=== PATIENT | female | born 1945 | race African-American/Black ===

== ENCOUNTER 2016-05-06 22:06 | Emergency (ER) | payer MEDICARE ==
[2016-05-06] MEDS ORDERED: NORMAL SALINE 1000 ML 500 ML IV ONE (22:25)
[2016-05-06] MEDS ORDERED: ONDANSETRON HCL INJ/PF 4 MG/2 ML SDV IV ONE (22:25)
--- NOTE | 2016-05-06 22:52 | ER Document Report ---
ED General - General Stated Complaint: FEVER,VOMITING Notes: Patient is a 70-year-old female presents for complaint of nausea vomiting and fever. She's also had a lot of coughing. No diarrhea. No sick contacts. Symptoms started today. Fever was 100.61 the ambulance arrived. No chest pain. No abdominal pain. No blood in her emesis. No other complaints this time. TRAVEL OUTSIDE OF THE [place] IN LAST 30 DAYS: No - Related Data Allergies/Adverse Reactions: No Known Allergies Allergy (Verified 10/04/13 23:14) Past Medical History - Social History Smoking Status: Never Smoker Frequency of alcohol use: None Drug Abuse: None Family History: Reviewed & Not Pertinent - Past Medical History Cardiac Medical History: Reports: Hx Hypercholesterolemia, Hx Hypertension GI Medical History: Reports: Hx Gastroesophageal Reflux Disease Past Surgical History: Reports: Hx Cholecystectomy, Hx Hysterectomy - Immunizations Hx Diphtheria, Pertussis, Tetanus Vaccination: Yes Review of Systems - Review of Systems Notes: My Normal Review Basic REVIEW OF SYSTEMS: CONSTITUTIONAL : Fever EENT: Denies eye, ear, throat, or mouth pain or symptoms. Denies nasal or sinus congestion. CARDIOVASCULAR: Denies chest pain. RESPIRATORY: Recurrent cough GASTROINTESTINAL: Denies abdominal pain. Some vomiting. Denies constipation. Last BM: GENITOURINARY: Denies difficulty urinating, painful urination, burning, frequency, or blood in urine. MUSCULOSKELETAL: Denies neck or back pain or joint pain or swelling. SKIN: Denies rash or skin lesions. NEUROLOGICAL: Denies altered mental status or loss of consciousness. Denies headache. Denies weakness or paralysis or loss of use of either side. Denies problems with gait or speech. Denies sensory or motor loss. ALL OTHER SYSTEMS REVIEWED AND NEGATIVE. Physical Exam - Notes Notes: General Appearance: Well nourished, alert, cooperative, no acute distress, no obvious discomfort. Vitals: reviewed, See vital signs table. Head: no swelling or tenderness to the head Eyes: PERRL, EOMI, Conjuctiva clear Mouth: No decreasd moisture Throat: No tonsillar inflammation, No airway obstruction, No lymphadenopathy Ears: Normal appearing tympanic membranes bilaterally. Neck: Supple, no neck tenderness, No thyromegaly Lungs: Some coarse lung sounds in the left base. Remainder of lung rasheed are clear. Heart: Normal rate, Regular rythm, No murmur, no rub Abdomen: Normal BS, soft, No rigidity, No abdominal tenderness, No guarding, no rebound, no abdominal masses, no organomegaly Extremities: strength 5/5 in all extremities, good pulses in all extremities, no swelling or tenderness in the extremities, no edema. Skin: warm, dry, appropriate color, no rash Neuro: speech clear, oriented x 3, normal affect, responds appropriately to questions. Course - Laboratory Result Diagrams: 05/06/16 23:57 05/06/16 23:57 Laboratory results interpreted by me: 05/06/16 02 23:57 23:57 Hgb 11.4 L Hct 34.6 L RDW 14.5 H Sodium 136.5 L Creatinine 1.55 H Est GFR ( Amer) 40 L Est GFR (Non-Af Amer) 33 L Glucose 111 H - Transfer of Care Notes: 05/07/16 01:05 Patient continues looks very well and exam. She does have a dry cough during exam that was recurrent. The cough seems to have subsided she's looking much better. Her nausea is improved. She has no reproducible pain to palpation of her abdomen. Clinically she looks very well. Her laboratory evaluation is unremarkable. Chest x-ray does not currently show evidence pneumonia; however, she does have some diminishment no left lower lobe and she does have recurrent cough and low-grade fever. Being that she is 69 years of age with the pre- mentioned findings feel that it's appropriate to start her on antibiotic as she may be developing early pneumonia. Patient strongly encouraged return to ER immediately if she has any worsening of her symptoms or feels unwell. Patient agrees with plan will be discharged home. Dictation of this chart was performed using voice recognition software; therefore, there may be some unintended grammatical errors. Discharge - Discharge Clinical Impression: Acute bronchitis Qualifiers: Bronchitis organism: unspecified organism Qualified Code(s): J20.9 - Acute bronchitis, unspecified Fever Qualifiers: Fever type: unspecified Qualified Code(s): R50.9 - Fever, unspecified Vomiting Qualifiers: Vomiting type: unspecified Vomiting Intractability: non-intractable Nausea presence: with nausea Qualified Code(s): R11.2 - Nausea with vomiting, unspecified Condition: Good Disposition: HOME, SELF-CARE Additional Instructions: Please take the antibiotic as prescribed. We have given you a bottle of Zofran. This is a nausea medication. Please take it as 1 tablet by mouth every 4 hours as needed for nausea. The tablet will dissolve in her mouth. Please return to ER immediately if you have recurrent fevers, intractable vomiting, difficulty breathing, or feel that your worsening in any way. I suspect that you probably have a bronchitis based on the recurrent cough and low -grade fever. Even though you are well-appearing now, I still want to have a low threshold to return to ER if you are feeling that your worsening in anyway being that you are over 70 years of age. Prescriptions: Azithromycin 250 mg PO DAILY #4 tablet Referrals: JAMIA MERAZ MD [Primary Care Provider] - 05/09/16
[2016-05-07 00:18] LABS: ABSOLUTE MONOCYTES (AUTO) 0.9 10^3/uL (0.1-1.4); ABSOLUTE NEUT (AUTO) 5.1 10^3/uL (1.7-8.2); BASOPHILS % (AUTO) 0.3 % (0-2); EOSINOPHILS % (AUTO) 0.3 % (0-6); HEMATOCRIT 34.6 % (36.0-47.0); HEMOGLOBIN 11.4 g/dL (12.0-15.5); HGB HCT DIFFERENCE -0.4; MEAN CORPUSCULAR HEMOGLOBIN 27.8 pg (27.0-33.4); MEAN CORPUSCULAR HGB CONC 32.9 g/dL (32.0-36.0); MEAN CORPUSCULAR VOLUME 85 fl (80-97); MONOCYTES % (AUTO) 12.3 % (3-13); RED BLOOD COUNT 4.09 10^6/uL (3.72-5.28); RED CELL DISTRIBUTION WIDTH 14.5 % (11.5-14.0); SEGMENTED NEUTROPHILS % (AUTO) 73.1 % (42-78)
[2016-05-07 00:34] LABS: ANION GAP 12 (5-19); BLOOD UREA NITROGEN 20 mg/dL (7-20); CALCIUM 8.9 mg/dL (8.4-10.2); CARBON DIOXIDE 24 mmol/L (22-30); CHLORIDE 101 mmol/L (98-107); CREATININE RESULT 1.55 mg/dL (0.52-1.25); GLUCOSE 111 mg/dL (75-110); POTASSIUM 3.9 mmol/L (3.6-5.0); SODIUM 136.5 mmol/L (137-145)
[2016-05-07] MEDS ORDERED: AZITHROMYCIN 250 MG TABLET PO ONE (01:01)
[2016-05-07] MEDS ORDERED: ONDANSETRON ODT 4 MG TAB (6 TAB/DSPK) PO PRN (01:01)
[2016-05-07 09:00] VITALS: BP 112/49
== END 2016-05-07 02:57 | disposition home or self-care (01) ==
LOC: ER 22:06
DX: J20.9 Acute bronchitis, unspecified (principal); R11.2 Nausea with vomiting, unspecified; R50.9 Fever, unspecified; R05 Cough; I10 Essential (primary) hypertension; Z87.19 Personal history of other diseases of the digestive system; Z90.49 Acquired absence of other specified parts of digestive tract
CPT/HCPCS: 99284; 96374; 36415; 83735; 85025; 80048; 71020; A9270 ×2; J2405

== ENCOUNTER → 2016-07-13 | Outpatient (CLI) | payer MEDICARE | LOC: WI 08:41 | PROVIDERS: ATTEND Family Medicine | DX: Z12.31 Encounter for screening mammogram for malignant neoplasm of breast (principal) | CPT/HCPCS: 77067; G0202 ==

== ENCOUNTER → 2017-01-05 | Outpatient (CLI) | payer MEDICARE, MEDICAID ==
--- NOTE | 2017-01-05 10:15 | WOMENS IMAGING REPORT ---
EXAM DESCRIPTION: BONE DENSITY HIP/SPINE COMPLETED DATE/TIME: 01/05/2017 8:04 am REASON FOR STUDY: OSTEOPOROSIS M81.0 AGE-RELATED OSTEOPOROSIS W/O CURRENT PATHOLOGICAL FRAC COMPARISON: None. TECHNIQUE: Dual-Energy X-ray Absorptiometry (DEXA) of the AP Spine and Hip. LIMITATIONS: None. FINDINGS: LUMBAR SPINE: The bone mineral density (BMD) measured from L1-L4 in the AP projection correlates with a T-score of -4.9, which is osteoporotic as defined by the World Health Organization. HIP: The bone mineral density (BMD) measured in the left femoral neck at the hip correlates with a T-score of -1.6, which is osteopenic as defined by the World Health Organization. IMPRESSION: 1. LUMBAR SPINE: Osteoporotic 2. HIP: Osteopenic COMMENT: The World Health Organization defines low BMD as follows: T-score: Normal: Greater than -1.0 Osteopenia: Between -1.0 and -2.5 Osteoporosis: Less than -2.5 without fractures Established osteoporosis: Less than -2.5 with fractures In general, you may wish to consider: Diagnosis Treatment Follow-up DEXA Normal BMD Prevention 2-3 years Osteopenia Prevention/Therapy 1-2 years Osteoporosis Therapy Yearly TECHNICAL DOCUMENTATION: JOB ID: [id number]- All Rights Reserved
== END ==
LOC: WI 07:45
PROVIDERS: ATTEND Family Medicine
DX: M81.0 Age-related osteoporosis without current pathological fracture (principal)
CPT/HCPCS: 77080

== ENCOUNTER → 2017-07-17 | Outpatient (CLI) | payer MEDICARE, MEDICAID ==
--- NOTE | 2017-07-25 09:40 | WOMENS IMAGING REPORT ---
EXAM DESCRIPTION: 3D SCREENING MAMMO BILAT COMPLETED DATE/TIME: 07/17/2017 11:08 am REASON FOR STUDY: ROUTINE SCREENING;Z12.31 Z12.31 ENCNTR SCREEN MAMMOGRAM FOR MALIGNANT NEOPLASM OF KEY COMPARISON: [id number] TECHNIQUE: Standard craniocaudal and mediolateral oblique views of each breast recorded using digita l acquisition and breast tomosynthesis. LIMITATIONS: None. FINDINGS: No masses, calcifications or architectural distortion. No areas of suspicion. Read with the assistance of CAD. .[facility] - R2 Cenova Version 1.3 .[facility] - R2 Cenova Version 1.3 .[facility] - R2 Cenova Version 2.4 .[facility] [place] - R2 Cenova Version 2.4 .[facility] - R2 Social Worker Assistant Version 9.2 IMPRESSION: NORMAL MAMMOGRAM. BIRADS 1. BREAST DENSITY: b. There are scattered areas of fibroglandular density. BIRAD: 1 NEGATIVE RECOMMENDATION: ROUTINE SCREENING COMMENT: The patient has been notified of the results by letter per SA requirements. Additional no tification policies are in place for contacting patient with suspicious or incomplete findings. Quality ID #[id number]: The [employer] recommends an annual screening mammogram for women aged 40 years or over. This facility utilizes a reminder system to ensure that all patients receive reminder letters, and/or direct phone calls for appointments. This includes reminders for routine scr eening mammograms, diagnostic mammograms, or other Breast Imaging Interventions when appropriate. Th is patient will be placed in the appropriate reminder system. The [employer] (ACR) has developed recommendations for screening MRI of the breast s in certain patient populations, to be used in conjunction with mammography. Breast MRI surveillanc e may be appropriate for women with more than 20% lifetime risk of developing breast cancer as deter mined by genetic testing, significant family history of the disease, or history of mantle radiation f or Hodgkins Disease. ACR Practice Guidelines 2008. DBT Technology DBT is a type of tomographic mammography. With conventional mammography, overlapping breast tissue ma y make lesions difficult to detect, even with good compression. DBT uses an x-ray tube that rotates a round the breast, taking images at different angles. These images are then combined to create thin sl ices of the breast that the radiologist can view as a 3D reconstruction. The [employer] unit can perform full-field digital mammograms (2D imaging); or DBT (3D imaging); or both, in a combination mode that quickly performs both the mammogram and the tomosynthesis scan while the breast is still compressed. PQRS 6045F: Fluoroscopic imaging is not utilized for breast tomosynthesis. TECHNICAL DOCUMENTATION: FINDING NUMBER: (1) ASSESSMENT: (1) JOB ID: [id number] [employer]- All Rights Reserved Reading location - IP/workstation name: [email or web address]
== END ==
LOC: WI 08:59
PROVIDERS: ATTEND Family Medicine
DX: Z12.31 Encounter for screening mammogram for malignant neoplasm of breast (principal)
CPT/HCPCS: 77063; 77067

== ENCOUNTER 2017-08-04 18:24 | Emergency (ER) | payer MEDICARE, MEDICAID ==
--- NOTE | 2017-08-04 19:06 | ER Document Report ---
ED Medical Screen (RME) - General Chief Complaint: Chest Pain Stated Complaint: CHEST PAIN Time Seen by Provider: 08/04/17 19:02 Notes: RAPID MEDICAL EVALUATION DISCLOSURE I have seen this patient as part of a Rapid Medical Evaluation and, if applicable, placed any initially appropriate orders. The patient will be seen and fully evaluated, including a full history and physical exam, by a provider ( in Main ED or Fast Track) when a room becomes available. 71-year-old female here with complaints of left-sided chest pain nonradiating constant started earlier today. She does not have any shortness of breath nausea vomiting lightheadedness diaphoresis with the pain. Pain is worse with exertion. She feels it is better when she sits still and stops moving around. Has not taken anything for the pain. Has no prior history of heart disease. EXAM CTAB RRR TRAVEL OUTSIDE OF THE [place] IN LAST 30 DAYS: No - Related Data Allergies/Adverse Reactions: No Known Allergies Allergy (Verified 10/04/13 23:14) Past Medical History - Past Medical History Cardiac Medical History: Reports: Hx Hypercholesterolemia, Hx Hypertension GI Medical History: Reports: Hx Gastroesophageal Reflux Disease Past Surgical History: Reports: Hx Cholecystectomy, Hx Hysterectomy - Immunizations Hx Diphtheria, Pertussis, Tetanus Vaccination: Yes Physical Exam - Vital signs Vitals: Temp Pulse Resp BP Pulse Ox 98.9 F 75 16 132/69 H 97 08/04/17 18:38 08/04/17 18:38 08/04/17 18:38 08/04/17 18:38 08/04/17 18:38 Course - Vital Signs Vital signs: Temp Pulse Resp BP Pulse Ox 98.9 F 75 16 132/69 H 97 08/04/17 18:38 08/04/17 18:38 08/04/17 18:38 08/04/17 18:38 08/04/17 18:38
--- NOTE | 2017-08-04 19:39 | RADIOLOGY REPORT (SQ) ---
EXAM DESCRIPTION: CHEST 2 VIEWS COMPLETED DATE/TIME: 08/04/2017 7:29 pm REASON FOR STUDY: CP COMPARISON: 05/06/2016 EXAM PARAMETERS: NUMBER OF VIEWS: two views TECHNIQUE: Digital Frontal and Lateral radiographic views of the chest acquired. RADIATION DOSE: NA LIMITATIONS: none FINDINGS: LUNGS AND PLEURA: No opacities, masses or pneumothorax. No pleural effusion. MEDIASTINUM AND HILAR STRUCTURES: No masses or contour abnormalities. HEART AND VASCULAR STRUCTURES: Heart normal size. No evidence for failure. BONES: No acute findings. HARDWARE: None in the chest. OTHER: No other significant finding. IMPRESSION: NO ACUTE RADIOGRAPHIC FINDING IN THE CHEST. TECHNICAL DOCUMENTATION: JOB ID: [id number] [employer]- All Rights Reserved Reading location - IP/workstation name: [email or web address]
[2017-08-04 19:56] LABS: ABSOLUTE BASOPHILS # (AUTO) 0.1 10^3/uL (0.0-0.2); TOTAL CELLS COUNTED % (AUTO) 100 %; WHITE BLOOD COUNT 8.8 10^3/uL (4.0-10.5)
[2017-08-04 20:05] LABS: ABSOLUTE EOSINOPHILS # (AUTO) 0.3 10^3/uL (0.0-0.6); ABSOLUTE LYMPHOCYTES (AUTO) 4.7 10^3/uL (0.5-4.7); ABSOLUTE MONOCYTES (AUTO) 0.6 10^3/uL (0.1-1.4); ABSOLUTE NEUT (AUTO) 3.2 10^3/uL (1.7-8.2); BASOPHILS % (AUTO) 0.6 % (0-2); HEMATOCRIT 36.7 % (36.0-47.0); HEMOGLOBIN 12.6 g/dL (12.0-15.5); LYMPHOCYTES % (AUTO) 53.1 % (13-45); MEAN CORPUSCULAR HEMOGLOBIN 29.4 pg (27.0-33.4); MEAN CORPUSCULAR HGB CONC 34.3 g/dL (32.0-36.0); MEAN CORPUSCULAR VOLUME 86 fl (80-97); MONOCYTES % (AUTO) 7.3 % (3-13); PLATELET COUNT 278 10^3/uL (150-450); RED BLOOD COUNT 4.27 10^6/uL (3.72-5.28); RED CELL DISTRIBUTION WIDTH 13.6 % (11.5-14.0)
[2017-08-04 20:27] LABS: ANION GAP 15 (5-19); BLOOD UREA NITROGEN 16 mg/dL (7-20); CALCIUM 9.9 mg/dL (8.4-10.2); CARBON DIOXIDE 27 mmol/L (22-30); CHLORIDE 101 mmol/L (98-107); GLUCOSE 91 mg/dL (75-110); POTASSIUM 4.2 mmol/L (3.6-5.0); SODIUM 143.1 mmol/L (137-145)
--- NOTE | 2017-08-04 20:47 | ER Document Report ---
ED General - General Chief Complaint: Chest Pain Stated Complaint: CHEST PAIN Time Seen by Provider: 08/04/17 19:02 Mode of Arrival: Ambulatory Information source: Patient Notes: 71-year-old female history of hypertension hypercholesterolemia presents with complaints of chest wall pain. Patient notes his been constant pain for the past 2 days, she denies any trauma however notes when she moves around the pain worsens. She knows turning to her right mixed at heart return to the left does not. She denies any fevers or chills she denies any shortness of breath difficulty breathing TRAVEL OUTSIDE OF THE [place] IN LAST 30 DAYS: No - HPI Onset: Yesterday Onset/Duration: Persistent Quality of pain: Sharp Severity: Mild Pain Level: 1 Associated symptoms: Body/muscle aches, Chest pain Exacerbated by: Movement Relieved by: Remaining still Similar symptoms previously: No Recently seen / treated by doctor: No - Related Data Allergies/Adverse Reactions: No Known Allergies Allergy (Verified 10/04/13 23:14) Past Medical History - Social History Smoking Status: Never Smoker Cigarette use (# per day): No Chew tobacco use (# tins/day): No Smoking Education Provided: No Family History: Reviewed & Not Pertinent Patient has suicidal ideation: No Patient has homicidal ideation: No - Past Medical History Cardiac Medical History: Reports: Hx Hypercholesterolemia, Hx Hypertension Renal/ Medical History: Denies: Hx Peritoneal Dialysis GI Medical History: Reports: Hx Gastroesophageal Reflux Disease Past Surgical History: Reports: Hx Cholecystectomy, Hx Hysterectomy - Immunizations Hx Diphtheria, Pertussis, Tetanus Vaccination: Yes Review of Systems - Review of Systems Notes: REVIEW OF SYSTEMS: CONSTITUTIONAL : Denies fever, chills, or sweats. Denies recent illness. EENT: Denies eye, ear, throat, or mouth pain or symptoms. Denies nasal or sinus congestion or discharge. Denies throat, tongue, or mouth swelling or difficulty swallowing. CARDIOVASCULAR: Denies chest pain. Denies palpitations or racing or irregular heart beat. Denies ankle edema. RESPIRATORY: Denies cough, cold, or chest congestion. Denies shortness of breath, difficulty breathing, or wheezing. GASTROINTESTINAL: Denies abdominal pain or distention. Denies nausea, vomiting , or diarrhea. Denies blood in vomitus, stools, or per rectum. Denies black, tarry stools. Denies constipation. GENITOURINARY: Denies difficulty urinating, painful urination, burning, frequency, blood in urine, or discharge. FEMALE GENITOURINARY: Denies vaginal bleeding, heavy or abnormal periods, irregular periods. Denies vaginal discharge or odor. MUSCULOSKELETAL: Admits to chest wall pain SKIN: Denies rash, lesions or sores. HEMATOLOGIC : Denies easy bruising or bleeding. LYMPHATIC: Denies swollen, enlarged glands. NEUROLOGICAL: Denies confusion or altered mental status. Denies passing out or loss of consciousness. Denies dizziness or lightheadedness. Denies headache. Denies weakness or paralysis or loss of use of either side. Denies problems with gait or speech. Denies sensory loss, numbness, or tingling. Denies seizures. PSYCHIATRIC: Denies anxiety or stress. Denies depression, suicidal ideation, or homicidal ideation. ALL OTHER SYSTEMS REVIEWED AND NEGATIVE. PHYSICAL EXAMINATION: GENERAL: Well-appearing, well-nourished and in no acute distress. HEAD: Atraumatic, normocephalic. EYES: Pupils equal round and reactive to light, extraocular movements intact, conjunctiva are normal. ENT: Nares patent, oropharynx clear without exudates. Moist mucous membranes. NECK: Normal range of motion, supple without lymphadenopathy LUNGS: Breath sounds clear to auscultation bilaterally and equal. No wheezes rales or rhonchi. HEART: Regular rate and rhythm without murmurs completely reproducible chest wall tenderness upon palpation symptoms worsen with range of motion ABDOMEN: Soft, nontender, nondistended abdomen. No guarding, no rebound. No masses appreciated. Female : deferred Musculoskeletal: Normal range of motion, no pitting or edema. No cyanosis. NEUROLOGICAL: Cranial nerves grossly intact. Normal speech, normal gait. Normal sensory, motor exams PSYCH: Normal mood, normal affect. SKIN: Warm, Dry, normal turgor, no rashes or lesions noted. Dictation was performed using [employer] voice recognition software Physical Exam - Vital signs Vitals: Temp Pulse Resp BP Pulse Ox 98.9 F 75 16 132/69 H 97 08/04/17 18:38 08/04/17 18:38 08/04/17 18:38 08/04/17 18:38 08/04/17 18:38 Course - Re-evaluation Re-evalutation: 08/04/17 21:41 Patient's presentation is most consistent with costochondritis or irritation of her anterior chest wall, EKG noted no new changes she is a history of left bundle branch block she overall is well-appearing no distress resting comfortably cardiac enzyme was negative I do not believe the patient requires any further intervention as this is completely musculoskeletal and worsens with range of motion. Nonetheless I will have her follow-up with [facility] for further evaluation care and to take a baby aspirin daily until she is cleared by cardiology After performing a Medical Screening Examination, I estimate there is LOW risk for RUPTURED ESOPHAGUS, PNEUMOTHORAX, PULMONARY EMBOLISM, ACUTE CORONARY SYNDROME, OR THORACIC AORTIC DISSECTION, thus I consider the discharge disposition reasonable. I have reevaluated this patient multiple times and no significant life threatening changes are noted. The patient and I have discussed the diagnosis and risks, and we agree with discharging home with close follow-up. We also discussed returning to the Emergency Department immediately if new or worsening symptoms occur. We have discussed the symptoms which are most concerning (e.g., bloody sputum, worsening pain or shortness of breath) that necessitate immediate return. - Vital Signs Vital signs: Temp Pulse Resp BP Pulse Ox 98.9 F 75 20 153/83 H 100 08/04/17 18:38 08/04/17 18:38 08/04/17 20:01 08/04/17 20:01 08/04/17 20:01 - Laboratory Result Diagrams: 08/04/17 19:47 08/04/17 19:47 Laboratory results interpreted by me: 08/04/17 08/04/17 19:47 19:47 Seg Neutrophils % 36.0 L Lymphocytes % 53.1 H Est GFR (Non-Af Amer) 50 L - Diagnostic Test Radiology reviewed: Image reviewed - 2 view chest x-ray notes no acute abnormality, Reports reviewed - EKG Interpretation by Me EKG shows normal: Sinus rhythm, [place], Intervals [place]/QRS: LBBB When compared to previous EKG there are: No significant change Discharge - Discharge Clinical Impression: Chest wall tenderness Condition: Stable Disposition: HOME, SELF-CARE Instructions: Chest Pain of Unclear Cause ([facility]), Chest Wall Pain ([facility]) Referrals: JAMIA MERAZ MD [Primary Care Provider] - Follow up as needed GILL MARTINEZ MD [ACTIVE STAFF] - Follow up tomorrow
[2017-08-04] MEDS ORDERED: IBUPROFEN 800 MG TABLET PO ONE (21:43)
[2017-08-04 22:00] VITALS: BP 127/66
--- NOTE | 2017-08-04 22:39 | EKG REPORT ---
SEVERITY:- ABNORMAL ECG - SINUS RHYTHM LEFT BUNDLE BRANCH BLOCK : Confirmed by: Celso Hernandez 04-Aug-2017 19:37:54
== END 2017-08-04 22:00 | disposition home or self-care (01) ==
LOC: ER 18:24
DX: R07.89 Other chest pain (principal); M79.1 Myalgia; I10 Essential (primary) hypertension; E78.00 Pure hypercholesterolemia, unspecified; Z90.49 Acquired absence of other specified parts of digestive tract; Z90.710 Acquired absence of both cervix and uterus
CPT/HCPCS: 93005; 99285; 36415; 85025; 80048; 84484; 71046; 93010; A9270

== ENCOUNTER 2017-11-01 21:30 | Emergency (ER) | payer OTHER, MEDICARE, MEDICAID ==
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
[2017-11-02] MEDS ORDERED: KETOROLAC TROMETHAMINE 60 MG/2 ML SDV IM ONE (01:32)
[2017-11-02 02:05] VITALS: BP 162/75
== END 2017-11-02 02:14 | disposition home or self-care (01) ==
LOC: ER 21:30
DX: M25.561 Pain in right knee (principal); M54.2 Cervicalgia; R51 Headache; V89.2XXA Person injured in unspecified motor-vehicle accident, traffic, initial encounter; I10 Essential (primary) hypertension
CPT/HCPCS: 99284; 96372; 73564; 70450; 72125; L0120; J1885

== ENCOUNTER → 2018-07-18 | Outpatient (CLI) | payer MEDICAID, MEDICARE ==
--- NOTE | 2018-07-18 14:23 | WOMENS IMAGING REPORT ---
EXAM DESCRIPTION: 3D SCREENING MAMMO BILAT COMPLETED DATE/TIME: 07/18/2018 8:58 am REASON FOR STUDY: Z12.31 ENCOUNTER FOR SCREENING MAMMOGRAM FOR MALIGNANT NEOPLASM OF BREAST Z12.31 ENCNTR SCREEN MAMMOGRAM FOR MALIGNANT NEOPLASM OF KEY COMPARISON: Multiple since 2010 TECHNIQUE: Standard craniocaudal and mediolateral oblique views of each breast recorded using digita l acquisition and breast tomosynthesis. LIMITATIONS: None. FINDINGS: No masses, calcifications or architectural distortion. No areas of suspicion. Read with the assistance of CAD. .[facility] - R2 [employer] Terminology Version 9.2 IMPRESSION: NORMAL MAMMOGRAM. BIRADS 1. BREAST DENSITY: b. There are scattered areas of fibroglandular density. BIRAD: 1 NEGATIVE RECOMMENDATION: ROUTINE SCREENING COMMENT: The patient has been notified of the results by letter per MQSA requirements. Additional no tification policies are in place for contacting patient with suspicious or incomplete findings. Quality ID #225: The [employer] recommends an annual screening mammogram for women aged 40 years or over. This facility utilizes a reminder system to ensure that all patients receive reminder letters, and/or direct phone calls for appointments. This includes reminders for routine scr eening mammograms, diagnostic mammograms, or other Breast Imaging Interventions when appropriate. Th is patient will be placed in the appropriate reminder system. TECHNICAL DOCUMENTATION: FINDING NUMBER: (1) ASSESSMENT: (1) JOB ID: [id number] [employer]- All Rights Reserved Reading location - IP/workstation name: [email or web address]
== END ==
LOC: WI 08:26
PROVIDERS: ATTEND Family Medicine
DX: Z12.31 Encounter for screening mammogram for malignant neoplasm of breast (principal)
CPT/HCPCS: 77063; 77067

== ENCOUNTER 2019-01-15 20:59 | Observation (INO) | payer MEDICARE ==
[2019-01-15] MEDS ORDERED: ASPIRIN 81 MG TABLET, CHEWABLE PO ONE (21:03)
--- NOTE | 2019-01-15 21:15 | ER Document Report ---
ED Medical Screen (RME) - General Chief Complaint: Chest Pain Stated Complaint: CHEST PAIN Time Seen by Provider: 01/15/19 21:11 Primary Care Provider: JAMIA MERAZ MD [Primary Care Provider] - Follow up as needed Mode of Arrival: Medic Information source: Patient Notes: 73-year-old female with history of high blood pressure presents to the emergency department with complaints of left-sided chest pain that started around 8 PM tonight. Reports she placed ice pack on the area and felt better. Denies other symptoms such as fever nausea vomiting sweating diarrhea. Patient is alert and oriented calm. She denies history of cardiac disease. I have greeted and performed a rapid initial assessment of this patient. A comprehensive ED assessment and evaluation of the patient, analysis of test results and completion of the medical decision making process will be conducted by additional ED providers. Dictation of this chart was performed using voice recognition software; therefore, there may be some unintended grammatical errors. TRAVEL OUTSIDE OF THE [place] IN LAST 30 DAYS: No - Related Data Allergies/Adverse Reactions: No Known Allergies Allergy (Verified 10/04/13 23:14) Past Medical History - Past Medical History Cardiac Medical History: Reports: Hx Hypercholesterolemia, Hx Hypertension Renal/ Medical History: Denies: Hx Peritoneal Dialysis GI Medical History: Reports: Hx Gastroesophageal Reflux Disease Past Surgical History: Reports: Hx Cholecystectomy, Hx Hysterectomy - Immunizations Hx Diphtheria, Pertussis, Tetanus Vaccination: Yes Doctor's Discharge - Discharge Referrals: JAMIA MERAZ MD [Primary Care Provider] - Follow up as needed
[2019-01-15 21:19] LABS: ABSOLUTE EOSINOPHILS # (AUTO) 0.2 10^3/uL (0.0-0.6); ABSOLUTE LYMPHOCYTES (AUTO) 4.3 10^3/uL (0.5-4.7); ABSOLUTE MONOCYTES (AUTO) 0.7 10^3/uL (0.1-1.4); ABSOLUTE NEUT (AUTO) 2.7 10^3/uL (1.7-8.2); BASOPHILS % (AUTO) 0.3 % (0-2); EOSINOPHILS % (AUTO) 2.2 % (0-6); HEMATOCRIT 34.7 % (36.0-47.0); HEMOGLOBIN 11.3 g/dL (12.0-15.5); LYMPHOCYTES % (AUTO) 54.2 % (13-45); MEAN CORPUSCULAR HEMOGLOBIN 27.6 pg (27.0-33.4); MEAN CORPUSCULAR HGB CONC 32.6 g/dL (32.0-36.0); MEAN CORPUSCULAR VOLUME 85 fl (80-97); PLATELET COUNT 232 10^3/uL (150-450); RED CELL DISTRIBUTION WIDTH 13.6 % (11.5-14.0); SEGMENTED NEUTROPHILS % (AUTO) 34.3 % (42-78); TOTAL CELLS COUNTED % (AUTO) 100 %; WHITE BLOOD COUNT 7.9 10^3/uL (4.0-10.5)
--- NOTE | 2019-01-15 21:22 | ER Document Report ---
ED General - General Chief Complaint: Chest Pain Stated Complaint: CHEST PAIN Time Seen by Provider: 01/15/19 21:11 Mode of Arrival: Medic Notes: Patient is a 73-year-old female with hypertension and hyperlipidemia that presents to the emergency department for chief complaint of nausea, vomiting and chest pain. Patient states that she was sitting watching TV when she all of a sudden felt nausea, and chest tightness just under her left breast. She then vomited shortly after. She is feeling better now, no chest pain is resolving. She was given 4 aspirin. Denies prior history of coronary disease. But admits to hypertension hyperlipidemia she states she is had a stress test in the past, and believes that it was negative but she does not recall exactly when it was. She denied having the pain any worse with exertion or better with rest. Denies any associated diaphoresis. No recent cough, prolonged travel, leg swelling or shortness of breath. Past Medical History: Hypertension, hyperlipidemia Past Surgical History: Denies any recent or pertinent surgical history Social History: Denies tobacco, alcohol or drug use, lives at home with family Family History: Reviewed and noncontributory for presenting illness Allergies: Reviewed, see documented allergy list. REVIEW OF SYSTEMS: Other than noted above, the 12 point review of systems was reviewed with the patient and were negative, all pertinent findings are included in the HPI. PHYSICAL EXAMINATION: Vital signs reviewed, nursing noted reviewed. GENERAL: Well-appearing, well-nourished and in no acute distress. HEAD: Atraumatic, normocephalic. EYES: Eyes appear normal, extraocular movements intact, sclera anicteric, conjunctiva are normal. ENT: nares patent, oropharynx clear without exudates. Moist mucous membranes. NECK: Normal range of motion, supple without lymphadenopathy LUNGS: Breath sounds clear to auscultation bilaterally and equal. No wheezes rales or rhonchi. HEART: Regular rate and rhythm without murmurs ABDOMEN: Soft, nontender, normoactive bowel sounds. No rebound, guarding, or rigidity. No masses appreciated. EXTREMITIES: Nontender, good range of motion, no pitting or edema. NEUROLOGICAL: No focal neurological deficits. Moves all extremities spontaneously Motor and sensory grossly intact on exam. PSYCH: Normal mood, normal affect. SKIN: Warm, Dry, normal turgor, no rashes or lesions noted on exposed skin TRAVEL OUTSIDE OF THE [place] IN LAST 30 DAYS: No - Related Data Allergies/Adverse Reactions: No Known Allergies Allergy (Verified 10/04/13 23:14) Past Medical History - General Information source: Patient - Social History Smoking Status: Never Smoker Family History: Reviewed & Not Pertinent - Past Medical History Cardiac Medical History: Reports: Hx Hypercholesterolemia, Hx Hypertension Renal/ Medical History: Denies: Hx Peritoneal Dialysis GI Medical History: Reports: Hx Gastroesophageal Reflux Disease Past Surgical History: Reports: Hx Cholecystectomy, Hx Hysterectomy - Immunizations Hx Diphtheria, Pertussis, Tetanus Vaccination: Yes Physical Exam - Vital signs Vitals: Temp Resp BP Pulse Ox 98.3 F 21 H 141/93 H 100 01/15/19 21:15 01/15/19 21:15 01/15/19 21:15 01/15/19 21:15 Course - Re-evaluation Re-evalutation: Patient seen and examined vital signs reviewed. Laboratory data and imaging were ordered as appropriate for the patient's presenting symptoms and complaint, with consideration of any critical or life threatening conditions that may be associated with their obtained history and exam as noted above. Patient was treated with aspirin Results were reviewed when available and demonstrated negative troponin, and chest x-ray blood work was otherwise unremarkable The patient was re-evaluated and was stable, chest pain was resolved Evaluation was most consistent with chest pain, nonspecific, patient has a heart score of 5 based on history, age and risk factors, and believe she needs serial troponin testing for rule out. Results were discussed with the patient at this point after careful consideration I feel that that patient should be admitted to the hospital. This was discussed with the patient that it is in the best interest for their care to be admitted for further evaluation and management. Patient agreed with this plan of care. A call was placed to the admitting physician, Dr. Quijano who graciously accepted the patient onto their service. *Note is created using voice recognition software and may contain spelling, syntax or grammatical errors. Laboratory 01/15/19 01/15/19 01/15/19 21:06 21:06 21:06 WBC 7.9 RBC 4.10 Hgb 11.3 L Hct 34.7 L MCV 85 MCH 27.6 MCHC 32.6 RDW 13.6 Plt Count 232 Lymph % (Auto) 54.2 H [place] % (Auto) 9.0 Eos % (Auto) 2.2 Baso % (Auto) 0.3 Absolute Neuts (auto) 2.7 Absolute Lymphs (auto) 4.3 Absolute Monos (auto) 0.7 Absolute Eos (auto) 0.2 Absolute Basos (auto) 0.0 Seg Neutrophils % 34.3 L Sodium 143.1 Potassium 3.8 Chloride 105 Carbon Dioxide 26 Anion Gap 12 BUN 12 Creatinine 1.01 Est GFR ( Amer) > 60 Est GFR (MDRD) Non-Af 54 L Glucose 91 Calcium 9.0 Total Bilirubin 0.4 Direct Bilirubin 0.2 Neonat Total Bilirubin Not Reportable Neonat Direct Bilirubin Not Reportable Neonat Indirect Bili Not Reportable AST 23 ALT 17 Alkaline Phosphatase 111 Creatine Kinase 146 H CK-MB (CK-2) 0.50 Troponin I < 0.012 Total Protein 7.6 Albumin 4.3 Lipase 01/15/19 21:06 WBC RBC Hgb Hct MCV MCH MCHC RDW Plt Count Lymph % (Auto) [place] % (Auto) Eos % (Auto) Baso % (Auto) Absolute Neuts (auto) Absolute Lymphs (auto) Absolute Monos (auto) Absolute Eos (auto) Absolute Basos (auto) Seg Neutrophils % Sodium Potassium Chloride Carbon Dioxide Anion Gap BUN Creatinine Est GFR ( Amer) Est GFR (MDRD) Non-Af Glucose Calcium Total Bilirubin Direct Bilirubin Neonat Total Bilirubin Neonat Direct Bilirubin Neonat Indirect Bili AST ALT Alkaline Phosphatase Creatine Kinase CK-MB (CK-2) Troponin I Total Protein Albumin Lipase 161.0 Chest X-Ray 01/15/19 21:11 IMPRESSION: No acute cardiopulmonary disease. - Vital Signs Vital signs: Temp Pulse Resp BP Pulse Ox 98.3 F 21 H 141/93 H 100 01/15/19 21:15 01/15/19 21:15 01/15/19 21:15 01/15/19 21:15 - Laboratory Result Diagrams: 01/15/19 21:06 01/15/19 21:06 Laboratory results interpreted by me: 01/15/19 01/15/19 21:06 21:06 Hgb 11.3 L Hct 34.7 L Lymph % (Auto) 54.2 H Seg Neutrophils % 34.3 L Est GFR (MDRD) Non-Af 54 L Creatine Kinase 146 H - EKG Interpretation by Me Additional EKG results interpreted by me: EKG demonstrates sinus rhythm with a ventricular rate of 73 bpm, normal axis, QTC prolonged at 425 ms, presence of left bundle branch block, which was seen on patient's prior EKG, without acute change. Discharge - Discharge Clinical Impression: Chest pain Qualifiers: Chest pain type: unspecified Qualified Code(s): R07.9 - Chest pain, unspecified Condition: Stable Disposition: ADMITTED OBSERVATION Admitting Provider: Quijano Unit Admitted: Telemetry
[2019-01-15 21:39] LABS: ALBUMIN 4.3 g/dL (3.5-5.0); ALKALINE PHOSPHATASE 111 U/L (38-126); ANION GAP 12 (5-19); ASPARTATE AMINO TRANSFERASE 23 U/L (14-36); BILIRUBIN,DIRECT 0.2 mg/dL (0.0-0.4); BILIRUBIN,TOTAL 0.4 mg/dL (0.2-1.3); BLOOD UREA NITROGEN 12 mg/dL (7-20); CARBON DIOXIDE 26 mmol/L (22-30); CHLORIDE 105 mmol/L (98-107); CREATINE KINASE 146 U/L (30-135); GLUCOSE 91 mg/dL (75-110); POTASSIUM 3.8 mmol/L (3.6-5.0); TOTAL PROTEIN 7.6 g/dL (6.3-8.2)
[2019-01-15 21:52] LABS: TROPONIN I < 0.012 ng/mL
--- NOTE | 2019-01-15 21:58 | RADIOLOGY REPORT (SQ) ---
XR CHEST 1 VIEW EXAM DATE: 01/15/2019 9:11 PM CDT HISTORY: CP. COMPARISON: 08/04/2017 FINDINGS: The heart size is within normal limits. No consolidation, pleural effusion, or pneumothorax is seen. No acute bony findings. IMPRESSION: No acute cardiopulmonary disease.
[2019-01-15] MEDS ORDERED: ACETAMINOPHEN 325 MG TABLET PO PRN (22:44)
[2019-01-15] MEDS ORDERED: MAG HYDROX/AL HYDROX/SIMETH SUSP 30 ML UDCUP PO PRN (22:44)
[2019-01-15] MEDS ORDERED: ONDANSETRON HCL INJ/PF 4 MG/2 ML SDV IV PRN (22:44)
[2019-01-15] MEDS ORDERED: NORMAL SALINE 1000 ML 1,000 ML IV PRN (22:56)
[2019-01-16 03:43] LABS: ALKALINE PHOSPHATASE 102 U/L (38-126); ANION GAP 9 (5-19); ASPARTATE AMINO TRANSFERASE 23 U/L (14-36); BILIRUBIN,DIRECT 0.1 mg/dL (0.0-0.4); BILIRUBIN,TOTAL 0.6 mg/dL (0.2-1.3); BLOOD UREA NITROGEN 12 mg/dL (7-20); CALCIUM 9.1 mg/dL (8.4-10.2); CARBON DIOXIDE 27 mmol/L (22-30); CHLORIDE 106 mmol/L (98-107); CREATINE KINASE 130 U/L (30-135); GLUCOSE 92 mg/dL (75-110); POTASSIUM 4.5 mmol/L (3.6-5.0); TOTAL PROTEIN 7.1 g/dL (6.3-8.2)
[2019-01-16 03:51] LABS: CREATINE KINASE MB 0.28 ng/mL (<4.55)
[2019-01-16 03:56] LABS: TROPONIN I < 0.012 ng/mL
[2019-01-16] MEDS: PANTOPRAZOLE SODIUM 40 MG TABLET.DR PO SCH ×2 (06:40→17:49)
--- NOTE | 2019-01-16 07:30 | EKG REPORT ---
SEVERITY:- ABNORMAL ECG - SINUS RHYTHM ATRIAL PREMATURE COMPLEX LEFT BUNDLE BRANCH BLOCK : Confirmed by: Canelo Bishop MD 16-Jan-2019 07:29:30
--- NOTE | 2019-01-16 07:30 | EKG REPORT ---
SEVERITY:- ABNORMAL ECG - SINUS RHYTHM LEFT BUNDLE BRANCH BLOCK : Confirmed by: Canelo Bishop MD 16-Jan-2019 07:29:20
--- NOTE | 2019-01-16 10:08 | PDOC H&P ---
History of Present Illness Admission Date/PCP: 01/15/19 22:52 JAMIA MERAZ MD Patient complains of: Chest pain History of Present Illness: CHEY DESAI is a 73 year old female This is a 73-year-old female with a history of the hypertension's hyperlipidemia and history of the left bundle branch block currently see Dr. PETERSON as outpatient with the history of the Peptic ulcer disease and questionable Madelyn Celsa tearAnd a Dr. Oliver need the endoscopy couple of years back and put on a PPI Patients came to the emergency department with a complaint of a left-sided pain started 8:00 last night and feel nausea vomiting that cut up her symptoms and in the emergency department patient's received the Zofran and aspirin and then after the patient's symptoms pretty much resolved Patient's recent LDL is 138 other blood work is all stable Patient's LFT and lipase is all normal and EKG and cardiac enzyme is all normal Patient's denied any chest pain now denied any short of breath Seen by the cardiology Dr. PETERSON at this year and according to the patient have a stress test and echo done not sure Past Medical History Cardiac Medical History: Reports: Hyperlipidema, Hypertension GI Medical History: Reports: Gastroesophageal Reflux Disease, Peptic Ulcer Disease Psychiatric Medical History: Denies: Depression Past Surgical History Past Surgical History: Reports: Cholecystectomy, Hysterectomy Social History Information Source: Patient Smoking Status: Never Smoker Electronic Cigarette use?: No Frequency of Alcohol Use: None Hx Recreational Drug Use: No Drugs: None Hx Prescription Drug Abuse: No Family History Family History: Reviewed & Not Pertinent Parental Family History Reviewed: Yes Children Family History Reviewed: Yes Sibling(s) Family History Reviewed.: Yes Medication/Allergy Home Medications: Ezetimibe 10 mg PO DAILY 01/16/19 Hydrochlorothiazide [Hydrodiuril 25 mg Tablet] 25 mg PO DAILY 01/16/19 Metoprolol Succinate [Toprol Xl 25 mg Tab.sr] 12.5 mg PO DAILY 01/16/19 Omeprazole 20 mg PO DAILY 01/16/19 Spironolactone [Aldactone 25 mg Tablet] 25 mg PO DAILY 01/16/19 Allergies/Adverse Reactions: No Known Allergies Allergy (Verified 10/04/13 23:14) Review of Systems Constitutional: ABSENT: chills, fever(s), headache(s), weight gain, weight loss Eyes: ABSENT: visual disturbances Ears: ABSENT: hearing changes Cardiovascular: ABSENT: chest pain, dyspnea on exertion, edema, orthropnea, palpitations Respiratory: ABSENT: cough, hemoptysis Gastrointestinal: ABSENT: abdominal pain, constipation, diarrhea, hematemesis, hematochezia, nausea, vomiting Genitourinary: ABSENT: dysuria, hematuria Musculoskeletal: ABSENT: joint swelling Integumentary: ABSENT: rash, wounds Neurological: ABSENT: abnormal gait, abnormal speech, confusion, dizziness, focal weakness, syncope Psychiatric: ABSENT: anxiety, depression, homidical ideation, suicidal ideation Endocrine: ABSENT: cold intolerance, heat intolerance, menstrual abnormalities, polydipsia, polyuria Hematologic/Lymphatic: ABSENT: easy bleeding, easy bruising, lymphadenopathy Physical Exam Vital Signs: Temp Pulse Resp BP Pulse Ox 98.4 F 62 16 149/75 H 100 01/16/19 08:19 01/16/19 08:19 01/16/19 08:19 01/16/19 08:19 01/16/19 08:19 Intake & Output 01/15/19 01/16/19 01/17/19 06:59 06:59 06:59 Output Total 0 Balance 0 Weight 80.9 kg General appearance: PRESENT: no acute distress, well-developed, well-nourished Head exam: PRESENT: atraumatic, normocephalic Eye exam: PRESENT: conjunctiva pink, EOMI, PERRLA. ABSENT: scleral icterus Ear exam: PRESENT: normal external ear exam Mouth exam: PRESENT: moist, tongue midline Neck exam: PRESENT: full ROM. ABSENT: carotid bruit, JVD, lymphadenopathy, thyromegaly Respiratory exam: PRESENT: clear to auscultation wenceslao Cardiovascular exam: PRESENT: RRR. ABSENT: diastolic murmur, rubs, systolic murmur Pulses: PRESENT: normal dorsalis pedis pul, +2 pedal pulses bilateral Vascular exam: PRESENT: normal capillary refill GI/Abdominal exam: PRESENT: normal bowel sounds, soft. ABSENT: distended, guarding, mass, organolmegaly, rebound, tenderness Rectal exam: PRESENT: deferred Musculoskeletal exam: PRESENT: ambulatory Neurological exam: PRESENT: alert, awake, oriented to person, oriented to place, oriented to time, oriented to situation, CN II-XII grossly intact. ABSENT: motor sensory deficit Psychiatric exam: PRESENT: appropriate affect, normal mood. ABSENT: homicidal ideation, suicidal ideation Skin exam: PRESENT: dry, intact, warm. ABSENT: cyanosis, rash Results Laboratory Results: 01/15/19 21:06 01/16/19 02:49 01/15/19 01/15/19 01/15/19 21:06 21:06 21:06 WBC 7.9 RBC 4.10 Hgb 11.3 L Hct 34.7 L MCV 85 MCH 27.6 MCHC 32.6 RDW 13.6 Plt Count 232 Seg Neutrophils % 34.3 L Sodium 143.1 Potassium 3.8 Chloride 105 Carbon Dioxide 26 Anion Gap 12 BUN 12 Creatinine 1.01 Est GFR ( Amer) > 60 Glucose 91 Calcium 9.0 Total Bilirubin 0.4 AST 23 Alkaline Phosphatase 111 Total Protein 7.6 Albumin 4.3 Lipase 161.0 01/16/19 02:49 WBC RBC Hgb Hct MCV MCH MCHC RDW Plt Count Seg Neutrophils % Sodium 141.7 Potassium 4.5 Chloride 106 Carbon Dioxide 27 Anion Gap 9 BUN 12 Creatinine 0.97 Est GFR ( Amer) > 60 Glucose 92 Calcium 9.1 Total Bilirubin 0.6 AST 23 Alkaline Phosphatase 102 Total Protein 7.1 Albumin 4.0 Lipase 01/15/19 01/15/19 01/16/19 21:06 21:06 02:49 Creatine Kinase 146 H CK-MB (CK-2) 0.50 0.28 Troponin I < 0.012 < 0.012 01/16/19 02:49 Creatine Kinase 130 CK-MB (CK-2) Troponin I Impressions: Chest X-Ray 01/15/19 21:11 IMPRESSION: No acute cardiopulmonary disease. Assessment & Plan - Diagnosis (1) Chest pain Qualifiers: Chest pain type: unspecified Qualified Code(s): R07.9 - Chest pain, unspecified Is this a current diagnosis for this admission?: Yes Plan: Patient initial EKG and a cardiac enzyme is all stable with the history of the left bundle branch is chronic we will consult the cardiology for further e valuations (2) Peptic ulcer disease Is this a current diagnosis for this admission?: Yes Plan: History of the ulcers the past week continues to Protonix 40 mg twice a day get the barium swallow and patients probably need a endoscopy as an outpatient we will discuss with Dr. Oliver (3) Hypertension Qualifiers: Hypertension type: essential hypertension Qualified Code(s): I10 - Essential (primary) hypertension Is this a current diagnosis for this admission?: Yes Plan: Continues to current medications (4) Hiatal hernia Is this a current diagnosis for this admission?: Yes Plan: Continues to PPI (5) Hyperlipidemia Qualifiers: Hyperlipidemia type: unspecified Qualified Code(s): E78.5 - Hyperlipidemia, unspecified Is this a current diagnosis for this admission?: Yes Plan: Continues to statin (6) Left bundle branch block Is this a current diagnosis for this admission?: Yes Plan: Patient has a known left bundle branch block evaluated in the past by Dr. PETERSON we will consult Dr. PETERSON for continuous further evaluations - Time Time Spent: 50 to 70 Minutes Medications reviewed and adjusted accordingly: Yes Anticipated discharge: Home Within: within 24 hours - Inpatient Certification Based on my medical assessment, after consideration of the patient's comorbidities, presenting symptoms, or acuity I expect that the services needed warrant INPATIENT care.: Yes I certify that my determination is in accordance with my understanding of Medicare's requirements for reasonable and necessary INPATIENT services [42 CFR 412.3e].: Yes Medical Necessity: Significant Comorbidiites Make Outpatient Treatment Too Risky, Need For Continuous Telemetry Monitoring Post Hospital Care: D/C Technical Administrative Assistant Documentation - Plan Summary Plan Summary: Admit the patient in the IMCU see orders
[2019-01-16 11:16] LABS: CREATINE KINASE MB 0.33 ng/mL (<4.55)
[2019-01-16 11:20] LABS: TROPONIN I < 0.012 ng/mL
[2019-01-16] MEDS: EZETIMIBE 10 MG TABLET PO SCH (11:21)
[2019-01-16] MEDS: ENOXAPARIN SODIUM INJ 40 MG/0.4 ML DISP.SYRIN SUBCUT SCH (11:21)
--- NOTE | 2019-01-16 11:37 | PDOC CONSULTATION ---
Consultation-Blank Consultation: CARDIOLOGY CONSULTATION by Dr. Breanne Wilson on 01/16/2019. Patient seen at 8:30 AM on 01/16/2019. 60 minutes spent on this patient more than 50% of time spent in direct patient care. REASON FOR CONSULTATION: Chest pain. CONSULT REQUESTING PHYSICIAN: Dr. Sandy Quijano. HISTORY OF PRESENT ILLNESS: Patient is a 73-year-old Afro-[place] female with known history of hypertension and hyperlipidemia and chronic left bundle branch block pattern states that while sitting down she had sudden onset of tightness in the chest followed by nausea and vomiting several times. There is chest pain/tightness lasted for about 5 minutes. There was no palpitations. There is no diaphoresis. There is no shortness of breath or any other associated symptoms. The patient has no prior history of [place], and in 2014 had a negative stress test for ischemia or [place] with nuclear imaging. She has no history of congestive heart failure. She has a history of peptic ulcer disease and history of Madelyn-Rogers tear in the past. She does have occasional difficulty swallowing. She has had cholecystectomy. There is no palpitations or PND orthopnea or near syncope or syncope. Past Medical History Cardiac Medical History: Reports: Hyperlipidema, Hypertension. She has a history of chronic left bundle branch block pattern. There is no history of congestive heart failure. GI Medical History: Reports: Gastroesophageal Reflux Disease, Peptic Ulcer Disease. History of intermittent dysphagia. History of Madelyn-Rogers tear. Psychiatric Medical History: Denies: Depression ECHOCARDIOGRAPHY TECHNOLOGIST: There is no history of TIA CVA. No history of headaches migraines or seizures. PULMONARY: No history of asthma or COPD. She is a non-smoker. There is no history of sleep apnea. There is no history of pulmonary embolism. GENITOURINARY: The patient denies any history of chronic kidney disease. No history of recurrent UTIs. ENDOCRINE: There is no history of diabetes mellitus or thyroid disease. Past Surgical History Past Surgical History: Reports: Cholecystectomy, Hysterectomy Social History Information Source: Patient Smoking Status: Never Smoker Electronic Cigarette use?: No Frequency of Alcohol Use: None Hx Recreational Drug Use: No Drugs: None Hx Prescription Drug Abuse: No Family History Family History: Positive for myocardial infarction/coronary artery disease in his sister. RESUSCITATION STATUS: The patient is a full code. Her sister is her surrogate healthcare decision maker. Medication/Allergy Home Medications: Ezetimibe 10 mg PO DAILY 01/16/19 Hydrochlorothiazide [Hydrodiuril 25 mg Tablet] 25 mg PO DAILY 01/16/19 Metoprolol Succinate [Toprol Xl 25 mg Tab.sr] 12.5 mg PO DAILY 01/16/19 Omeprazole 20 mg PO DAILY 01/16/19 Spironolactone [Aldactone 25 mg Tablet] 25 mg PO DAILY 01/16/19 Allergies/Adverse Reactions: No Known Allergies Allergy (Verified 10/04/13 23:14) Review of Systems Constitutional: ABSENT: chills, fever(s), headache(s), weight gain, weight loss Eyes: ABSENT: visual disturbances Ears: ABSENT: hearing changes Cardiovascular: ABSENT: chest pain, dyspnea on exertion, edema, orthropnea, palpitations Respiratory: ABSENT: cough, hemoptysis Gastrointestinal: ABSENT: abdominal pain, constipation, diarrhea, hematemesis, hematochezia, nausea, vomiting Genitourinary: ABSENT: dysuria, hematuria Musculoskeletal: ABSENT: joint swelling Integumentary: ABSENT: rash, wounds Neurological: ABSENT: abnormal gait, abnormal speech, confusion, dizziness, focal weakness, syncope Psychiatric: ABSENT: anxiety, depression, homidical ideation, suicidal ideation Endocrine: ABSENT: cold intolerance, heat intolerance, menstrual abnormalities, polydipsia, polyuria Hematologic/Lymphatic: ABSENT: easy bleeding, easy bruising, lymphadenopathy Current Medications Acetaminophen (Tylenol 325 Mg Tablet) 650 mg PO Q4HP PRN PRN Reason: FOR PAIN OR TEMP Stop: 02/14/19 22:43 Al Hydrox/Mg Hydrox/Simethicone (Maalox Plus Susp 30 Udcup) 15 ml PO Q6HP PRN PRN Reason: HEARTBURN Stop: 02/14/19 22:43 Ezetimibe (Zetia 10 Mg Tablet) 10 mg PO DAILY [facility] Stop: 02/15/19 10:59 Last Admin: 01/16/19 11:21 Dose: 10 mg Documented by: Enoxaparin Sodium (Lovenox Inj 40 Mg/0.4 Ml Disp.Syrin) 40 mg SUBCUT DAILY [facility] Stop: 02/15/19 09:59 Last Admin: 01/16/19 11:21 Dose: 40 mg Documented by: Hydrochlorothiazide (Hydrodiuril 25 Mg Tablet) 25 mg PO DAILY [facility] Stop: 02/16/19 09:59 Metoprolol Succinate (Toprol Xl 25 Mg Tab.Sr) 25 mg PO DAILY [facility] Stop: 02/16/19 09:59 Ondansetron HCl (Zofran Inj/Pf 4 Mg/2 Ml Sdv) 4 mg IV Q4HP PRN PRN Reason: FOR NAUSEA/VOMITING Stop: 02/14/19 22:43 Pantoprazole Sodium (Protonix [address] Tablet) 40 mg PO BID@0600,1700 [facility] Stop: 02/15/19 05:59 Last Admin: 01/16/19 06:40 Dose: 40 mg Documented by: Discontinued Medications Aspirin (Aspirin 81 Mg Chewable Tablet) 324 mg PO NOW ONE Stop: 01/15/19 21:04 Last Admin: 01/15/19 21:55 Dose: Not Given Documented by: Sodium Chloride (Nacl 0.9% 1000 Ml Iv Soln) 1,000 mls @ 60 mls/hr IV CONTINUOUS PRN PRN Reason: THIS MED IS NOT "PRN" Stop: 02/14/19 22:55 Last Admin: 01/16/19 02:42 Dose: 60 mls/hr Documented by: Metoprolol Succinate (Toprol Xl 25 Mg Tab.Sr) 12.5 mg PO DAILY [facility] Stop: 02/16/19 09:59 Spironolactone (Aldactone 25 Mg Tablet) 25 mg PO DAILY [facility] Stop: 02/16/19 09:59 PHYSICAL EXAMINATION: The patient is mildly obese. In no acute distress. She is well-groomed. Selected Entries 01/16/19 08:19 Temperature 98.4 F Temperature Oral Source Pulse Rate 62 Respiratory 16 Rate Blood Pressure 99 Mean BP Location Right Arm O2 Sat by Pulse 100 Oximetry Oxygen Delivery Room Air Method HEAD: Atraumatic, normocephalic. EYES: Pupils equal round and reactive to light, extraocular movements intact, sclera anicteric, conjunctiva are normal. ENT: TMs normal, nares patent, oropharynx clear without exudates. Moist mucous membranes. NECK: Normal range of motion, supple without lymphadenopathy or JVD. LUNGS: Breath sounds clear to auscultation bilaterally and equal. No wheezes rales or rhonchi. There is no chest wall tenderness HEART: S1-S2 is heard. S1 is of normal intensity. There is no S3 gallop. There is no S4 gallop. There is systolic murmur left sternal border and the apex, there is no rub ABDOMEN: Soft, nontender, normoactive bowel sounds. No guarding, no rebound. No masses appreciated. EXTREMITIES: Normal range of motion, no pitting or edema. No clubbing or cyanosis. NEUROLOGICAL: Cranial nerves II through XII grossly intact. Normal speech, normal gait. 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 Sensations are normal bilaterally. PSYCH: Normal mood, normal affect. His judgment and insight are intact SKIN: Warm, Dry, normal turgor, no rashes or lesions noted. EKG: Shows sinus rhythm with left bundle branch block pattern. Labs- Entire Visit 01/15/19 01/15/19 01/15/19 21:06 21:06 21:06 WBC 7.9 RBC 4.10 Hgb 11.3 L Hct 34.7 L MCV 85 MCH 27.6 MCHC 32.6 RDW 13.6 Plt Count 232 Lymph % (Auto) 54.2 H [place] % (Auto) 9.0 Eos % (Auto) 2.2 Baso % (Auto) 0.3 Absolute Neuts (auto) 2.7 Absolute Lymphs (auto) 4.3 Absolute Monos (auto) 0.7 Absolute Eos (auto) 0.2 Absolute Basos (auto) 0.0 Seg Neutrophils % 34.3 L Sodium 143.1 Potassium 3.8 Chloride 105 Carbon Dioxide 26 Anion Gap 12 BUN 12 Creatinine 1.01 Est GFR ( Amer) > 60 Est GFR (MDRD) Non-Af 54 L Glucose 91 Calcium 9.0 Total Bilirubin 0.4 Direct Bilirubin 0.2 Neonat Total Bilirubin Not Reportable Neonat Direct Bilirubin Not Reportable Neonat Indirect Bili Not Reportable AST 23 ALT 17 Alkaline Phosphatase 111 Creatine Kinase 146 H CK-MB (CK-2) 0.50 Troponin I < 0.012 Total Protein 7.6 Albumin 4.3 Lipase 01/15/19 01/16/19 01/16/19 21:06 02:49 02:49 WBC RBC Hgb Hct MCV MCH MCHC RDW Plt Count Lymph % (Auto) [place] % (Auto) Eos % (Auto) Baso % (Auto) Absolute Neuts (auto) Absolute Lymphs (auto) Absolute Monos (auto) Absolute Eos (auto) Absolute Basos (auto) Seg Neutrophils % Sodium 141.7 Potassium 4.5 Chloride 106 Carbon Dioxide 27 Anion Gap 9 BUN 12 Creatinine 0.97 Est GFR ( Amer) > 60 Est GFR (MDRD) Non-Af 56 L Glucose 92 Calcium 9.1 Total Bilirubin 0.6 Direct Bilirubin 0.1 Neonat Total Bilirubin Not Reportable Neonat Direct Bilirubin Not Reportable Neonat Indirect Bili Not Reportable AST 23 ALT 15 Alkaline Phosphatase 102 Creatine Kinase 130 CK-MB (CK-2) 0.28 Troponin I < 0.012 Total Protein 7.1 Albumin 4.0 Lipase 161.0 01/16/19 01/16/19 10:05 10:05 WBC RBC Hgb Hct MCV MCH MCHC RDW Plt Count Lymph % (Auto) [place] % (Auto) Eos % (Auto) Baso % (Auto) Absolute Neuts (auto) Absolute Lymphs (auto) Absolute Monos (auto) Absolute Eos (auto) Absolute Basos (auto) Seg Neutrophils % Sodium Potassium Chloride Carbon Dioxide Anion Gap BUN Creatinine Est GFR ( Amer) Est GFR (MDRD) Non-Af Glucose Calcium Total Bilirubin Direct Bilirubin Neonat Total Bilirubin Neonat Direct Bilirubin Neonat Indirect Bili AST ALT Alkaline Phosphatase Creatine Kinase 124 CK-MB (CK-2) 0.33 Troponin I < 0.012 Total Protein Albumin Lipase Chest X-Ray 01/15/19 21:11 IMPRESSION: No acute cardiopulmonary disease. IMPRESSION/RECOMMENDATION: 1. Chest pain: Appears to be noncardiac. The patient's EKG shows chronic left bundle branch block pattern, but the serial cardiac biomarkers are negative. 2. History of GERD/peptic ulcer disease and history of Madelyn-Rogers tear. Agree with getting the patient to have a barium swallow and his visual x-ray. 3. Hypertension: Not very well controlled would recommend adding increasing the patient's Lopressor to 25 mg p.o. daily in the form of Toprol-XL 25 p.o. daily. 4. Hyperlipidemia 5. CHRONIC left bundle branch block pattern. 6. History of GERD and peptic ulcer disease: Continue proton pump inhibitors. 7. Coronary artery disease risk factors are patient's age, hypertension, hyperlipidemia, and family history of coronary artery disease. Would recommend that the patient have an outpatient IV Lexiscan Cardiolite stress test and a echocardiogram. Medications reviewed. Medications adjusted. Management plan discussed with a ttending physician Dr. Quijano. Medical decision making is of moderate to high complexity. 60 minutes spent on this patient with more than 50% of time spent direct patient care. We will have the patient follow-up with me in the office. Will sign off once the results of the barium x-rays are available.
--- NOTE | 2019-01-16 12:38 | RADIOLOGY REPORT (SQ) ---
EXAM DESCRIPTION: BARIUM SWALLOW ESOPHAGUS COMPLETED DATE/TIME: 01/16/2019 11:51 am REASON FOR STUDY: History of the Madelyn-Rogers tear CHEST PAIN DYSPHAGIA COMPARISON: Upper GI 08/03/2015. TECHNIQUE: Under fluoroscopic guidance, patient ingested effervescent granules followed by thick and thin barium. Fluoroscopic spot images and routine radiographic images acquired and stored on PACS. 12 MM BARIUM TABLET GIVEN: Yes. No significant delay in passage. LIMITATIONS: None. FLUOROSCOPY TIME: FLUORO TIME: 2.2 minutes of fluoroscopy was used. 14 images saved to PACS. FINDINGS: NEUROMUSCULAR COORDINATION OF SWALLOW: Patient was given Omnipaque 300 to swallow which sh owed no evidence of esophageal perforation or leak. Neuromuscular coordination of swallow was normal . No aspiration. ESOPHAGEAL MOTILITY: Tertiary contractions in the distal half esophagus. ESOPHAGEAL MUCOSA: Normal mucosa without masses or ulceration. GASTRO-ESOPHAGEAL JUNCTION: Large sliding hiatal hernia with moderate free-flowing gastroesophageal r eflux noted. Hiatal hernia appears slightly more pronounced than on previous study. 12 mm barium ta blet passed through the GE junction without delay. No evidence of Madelyn-Rogers tear. NON-GI TRACT STRUCTURES: No significant finding. OTHER: No other significant finding. IMPRESSION: ESOPHAGEAL DYSMOTILITY WITH TERTIARY CONTRACTIONS SEEN. MODERATE SLIDING HIATAL HERNIA WITH GASTROESOPHAGEAL REFLUX NOTED ABOVE. COMMENT: Quality ID 145: Final reports for procedures using fluoroscopy that document radiation exp osure indices, or exposure time and number of fluorographic images (if radiation exposure indices are not available) TECHNICAL DOCUMENTATION: JOB ID: [id number] [employer]- All Rights Reserved Reading location - IP/workstation name: [email or web address] [id number]
[2019-01-16 16:12] LABS: CREATINE KINASE MB 0.32 ng/mL (<4.55)
[2019-01-16 16:14] LABS: TROPONIN I < 0.012 ng/mL
[2019-01-17] MEDS: PANTOPRAZOLE SODIUM 40 MG TABLET.DR PO SCH (06:15)
[2019-01-17 08:41] VITALS: BP 148/65
--- NOTE | 2019-01-17 08:59 | PDOC DISCHARGE SUMMARY ---
Impression - Admit/DC Date/PCP Admission Date/Primary Care Provider: 01/15/19 22:52 JAMIA MERAZ MD Discharge Date: 01/17/19 - Discharge Diagnosis (1) Chest pain Is this a current diagnosis for this admission?: Yes (2) Peptic ulcer disease Is this a current diagnosis for this admission?: Yes (3) Hypertension Is this a current diagnosis for this admission?: Yes (4) Hiatal hernia Is this a current diagnosis for this admission?: Yes (5) Hyperlipidemia Is this a current diagnosis for this admission?: Yes (6) Left bundle branch block Is this a current diagnosis for this admission?: Yes - Additional Information Discharge Diet: Cardiac Discharge Activity: Activity As Tolerated Referrals: ROSANNE BEAN MD [ACTIVE STAFF] - 02/26/19 2:15 pm (Dr. Bean's office will call if an earlier appointment becomes available.) JAMIA MERAZ MD [Primary Care Provider] - Follow up as needed (f/u with dr aguilar f/u with dr camilo make appt ) Prescriptions: Omeprazole 40 mg PO DAILY #30 capsule. Metoprolol Succinate [Toprol Xl 25 mg Tab.sr] 25 mg PO DAILY #30 tab.sr.24h Home Medications: Ezetimibe 10 mg PO DAILY 01/16/19 Hydrochlorothiazide [Hydrodiuril 25 mg Tablet] 25 mg PO DAILY 01/16/19 Metoprolol Succinate [Toprol Xl 25 mg Tab.sr] 25 mg PO DAILY #30 tab.sr.24h 01/17/19 Omeprazole 40 mg PO DAILY #30 capsule. 01/17/19 History of Present Illiness History of Present Illness: CHEY DESAI is a 73 year old female This is a 73-year-old female with a history of the hypertension's hyperlipidemia and history of the left bundle branch block currently see Dr. AGUILAR as outpatient with the history of the Peptic ulcer disease and questionable Madelyn Celsase toroAnd a Dr. Bean need the endoscopy couple of years back and put on a PPI Patients came to the emergency department with a complaint of a left-sided pain started 8:00 last night and feel nausea vomiting that cut up her symptoms and in the emergency department patient's received the Zofran and aspirin and then after the patient's symptoms pretty much resolved Patient's recent LDL is 138 other blood work is all stable Patient's LFT and lipase is all normal and EKG and cardiac enzyme is all normal Patient's denied any chest pain now denied any short of breath Seen by the cardiology Dr. AGUILAR at this year and according to the patient have a stress test and echo done not sure Hospital Course Hospital Course: This is a 73-year-old female presented emergency department with some nausea left-sided chest pain known history of the left bundle branch block with a history of the peptic ulcer disease Patient initial cardiac enzymes EKG all stable patient's admitting in the hospital for further evaluation and cardiology consult was placed Patient seen by Dr. AGUILAR suggest noncardiac chest pain follow outpatient as per discussed with the Dr. Wilson Patients underwent for the a cervical x-ray did not show any significant abnormality except is going hiatal hernia Patient's only present was increased to 40 mg patient's otherwise denied any symptoms patient is walking the hallway i Think patient's symptoms are related to the GI discussed with the patient avoid the spicy food patients follow outpatients Dr. Bean for further evaluations and Dr. AGUILAR I will follow the patient Physical Exam Vital Signs: Temp Pulse Resp BP Pulse Ox 98.6 F 75 16 148/65 H 97 01/17/19 08:39 01/17/19 08:39 01/17/19 08:39 01/17/19 08:39 01/17/19 08:39 Intake & Output 01/16/19 01/17/19 01/18/19 06:59 06:59 06:59 Intake Total 1190 Output Total 0 Balance 0 1190 Weight 80.9 kg 80.9 kg General appearance: PRESENT: no acute distress, well-developed, well-nourished Head exam: PRESENT: atraumatic, normocephalic Eye exam: PRESENT: conjunctiva pink, EOMI, PERRLA. ABSENT: scleral icterus Ear exam: PRESENT: normal external ear exam Mouth exam: PRESENT: moist, tongue midline Neck exam: ABSENT: carotid bruit, JVD, lymphadenopathy, thyromegaly Respiratory exam: PRESENT: clear to auscultation wenceslao. ABSENT: rales, rhonchi, wheezes Cardiovascular exam: PRESENT: RRR. ABSENT: diastolic murmur, rubs, systolic murmur Pulses: PRESENT: normal dorsalis pedis pul Vascular exam: PRESENT: normal capillary refill GI/Abdominal exam: PRESENT: normal bowel sounds, soft. ABSENT: distended, guarding, mass, organolmegaly, rebound, tenderness Rectal exam: PRESENT: deferred Extremities exam: PRESENT: full ROM. ABSENT: calf tenderness, clubbing, pedal edema Neurological exam: PRESENT: alert, awake, oriented to person, oriented to place, oriented to time, oriented to situation, CN II-XII grossly intact. ABSENT: motor sensory deficit Psychiatric exam: PRESENT: appropriate affect, normal mood. ABSENT: homicidal ideation, suicidal ideation Skin exam: PRESENT: dry, intact, warm. ABSENT: cyanosis, rash Results Laboratory Results: WBC 7.9 10^3/uL (4.0-10.5) 01/15/19 21:06 RBC 4.10 10^6/uL (3.72-5.28) 01/15/19 21:06 Hgb 11.3 g/dL (12.0-15.5) L 01/15/19 21:06 Hct 34.7 % (36.0-47.0) L 01/15/19 21:06 MCV 85 fl (80-97) 01/15/19 21:06 MCH 27.6 pg (27.0-33.4) 01/15/19 21:06 MCHC 32.6 g/dL (32.0-36.0) 01/15/19 21:06 RDW 13.6 % (11.5-14.0) 01/15/19 21:06 Plt Count 232 10^3/uL (150-450) 01/15/19 21:06 Lymph % (Auto) 54.2 % (13-45) H 01/15/19 21:06 [place] % (Auto) 9.0 % (3-13) 01/15/19 21:06 Eos % (Auto) 2.2 % (0-6) 01/15/19 21:06 Baso % (Auto) 0.3 % (0-2) 01/15/19 21:06 Absolute Neuts (auto) 2.7 10^3/uL (1.7-8.2) 01/15/19 21:06 Absolute Lymphs (auto) 4.3 10^3/uL (0.5-4.7) 01/15/19 21:06 Absolute Monos (auto) 0.7 10^3/uL (0.1-1.4) 01/15/19 21:06 Absolute Eos (auto) 0.2 10^3/uL (0.0-0.6) 01/15/19 21:06 Absolute Basos (auto) 0.0 10^3/uL (0.0-0.2) 01/15/19 21:06 Seg Neutrophils % 34.3 % (42-78) L 01/15/19 21:06 Sodium 141.7 mmol/L (137-145) 01/16/19 02:49 Potassium 4.5 mmol/L (3.6-5.0) 01/16/19 02:49 Chloride 106 mmol/L (98-107) 01/16/19 02:49 Carbon Dioxide 27 mmol/L (22-30) 01/16/19 02:49 Anion Gap 9 (5-19) 01/16/19 02:49 BUN 12 mg/dL (7-20) 01/16/19 02:49 Creatinine 0.97 mg/dL (0.52-1.25) 01/16/19 02:49 Est GFR ( Amer) > 60 (>60) 01/16/19 02:49 Est GFR (MDRD) Non-Af 56 (>60) L 01/16/19 02:49 Glucose 92 mg/dL (75-110) 01/16/19 02:49 Calcium 9.1 mg/dL (8.4-10.2) 01/16/19 02:49 Total Bilirubin 0.6 mg/dL (0.2-1.3) 01/16/19 02:49 Direct Bilirubin 0.1 mg/dL (0.0-0.4) 01/16/19 02:49 Neonat Total Bilirubin Not Reportable 01/16/19 02:49 Neonat Direct Bilirubin Not Reportable 01/16/19 02:49 Neonat Indirect Bili Not Reportable 01/16/19 02:49 AST 23 U/L (14-36) 01/16/19 02:49 ALT 15 U/L (<35) 01/16/19 02:49 Alkaline Phosphatase 102 U/L (38-126) 01/16/19 02:49 Creatine Kinase 119 U/L (30-135) 01/16/19 15:02 CK-MB (CK-2) 0.32 ng/mL (<4.55) 01/16/19 15:02 Troponin I < 0.012 ng/mL 01/16/19 15:02 Total Protein 7.1 g/dL (6.3-8.2) 01/16/19 02:49 Albumin 4.0 g/dL (3.5-5.0) 01/16/19 02:49 Lipase 161.0 U/L (23-300) 01/15/19 21:06 01/15/19 01/16/19 01/16/19 21:06 02:49 10:05 CK-MB (CK-2) 0.50 0.28 0.33 Troponin I < 0.012 < 0.012 < 0.012 01/16/19 15:02 CK-MB (CK-2) 0.32 Troponin I < 0.012 Impressions: Chest X-Ray 01/15/19 21:11 IMPRESSION: No acute cardiopulmonary disease. Esophagus X-Ray 01/16/19 00:00 IMPRESSION: ESOPHAGEAL DYSMOTILITY WITH TERTIARY CONTRACTIONS SEEN. MODERATE SLIDING HIATAL HERNIA WITH GASTROESOPHAGEAL REFLUX NOTED ABOVE. Plan Plan of Treatment: Follow outpatients Dr. Bean and Dr. AGUILAR Increase to omeprazole 40 mg p.o. daily Stroke Is this a Stroke Patient?: No Acute Heart Failure - Is this a Heart Failure Patient?: No
[2019-01-17] MEDS: EZETIMIBE 10 MG TABLET PO SCH (09:17)
[2019-01-17] MEDS: ENOXAPARIN SODIUM INJ 40 MG/0.4 ML DISP.SYRIN SUBCUT SCH (09:20)
[2019-01-17] MEDS ORDERED: SPIRONOLACTONE 25 MG TABLET PO SCH (10:00)
[2019-01-17] MEDS ORDERED: HYDROCHLOROTHIAZIDE 25 MG TABLET PO SCH (10:00)
[2019-01-17] MEDS ORDERED: METOPROLOL SUCCINATE 25 MG TAB.SR.24H PO SCH ×2 (10:00)
== END 2019-01-17 10:34 | disposition home or self-care (01) ==
LOC: ER 20:59 → EH 22:52 → 3W 01-16 01:39
PROVIDERS: ADMIT Family Medicine; ATTEND Family Medicine
DX: R07.89 Other chest pain (principal); K27.9 Peptic ulcer, site unspecified, unspecified as acute or chronic, without hemorrhage or perforation; I10 Essential (primary) hypertension; K44.9 Diaphragmatic hernia without obstruction or gangrene; E78.5 Hyperlipidemia, unspecified; I44.7 Left bundle-branch block, unspecified; K21.9 Gastro-esophageal reflux disease without esophagitis; E66.9 Obesity, unspecified; Z79.899 Other long term (current) drug therapy; Z90.49 Acquired absence of other specified parts of digestive tract; Z87.19 Personal history of other diseases of the digestive system; Z90.710 Acquired absence of both cervix and uterus; Z82.49 Family history of ischemic heart disease and other diseases of the circulatory system
CPT/HCPCS: 93005 ×2; 99285; 36415 ×2; 82553 ×2; 82550 ×2; 83690; 85025; 80053 ×2; 84484 ×2; 71045; 74220; 93010 ×2; G0378 ×4; A9270 ×6; J1650 ×2; J7030; J3490

== ENCOUNTER → 2019-04-05 | Outpatient (CLI) | payer MEDICARE ==
--- NOTE | 2019-04-05 16:36 | RADIOLOGY REPORT (SQ) ---
EXAM DESCRIPTION: CHEST PA/LATERAL COMPLETED DATE/TIME: 04/05/2019 3:50 pm REASON FOR STUDY: COUGH COMPARISON: AP view of the chest from 01/15/2019. EXAM PARAMETERS: NUMBER OF VIEWS: two views TECHNIQUE: PA and lateral views of the chest were obtained. RADIATION DOSE: NA LIMITATIONS: none FINDINGS: LUNGS AND PLEURA: No consolidation, pleural effusion or pneumothorax. MEDIASTINUM AND HILAR STRUCTURES: No mediastinal or hilar contour abnormality. HEART AND VASCULAR STRUCTURES: The cardiac silhouette and pulmonary vasculature are within normal borrego its. BONES: No acute findings. HARDWARE: Surgical clips that project within the right upper quadrant. OTHER: No other finding. IMPRESSION: No acute cardiopulmonary process. TECHNICAL DOCUMENTATION: JOB ID: [id number] [employer]- All Rights Reserved Reading location - IP/workstation name: [email or web address]
== END ==
LOC: OD 15:40
PROVIDERS: ATTEND Family Medicine
DX: R05 Cough (principal)
CPT/HCPCS: 71046

== ENCOUNTER → 2019-06-24 | Outpatient (CLI) | payer MEDICARE ==
[2019-06-24 13:21] LABS: ABSOLUTE EOSINOPHILS # (AUTO) 0.2 10^3/uL (0.0-0.6); ABSOLUTE LYMPHOCYTES (AUTO) 3.6 10^3/uL (0.5-4.7); ABSOLUTE MONOCYTES (AUTO) 0.7 10^3/uL (0.1-1.4); ABSOLUTE NEUT (AUTO) 3.1 10^3/uL (1.7-8.2); BASOPHILS % (AUTO) 0.4 % (0-2); EOSINOPHILS % (AUTO) 2.4 % (0-6); HEMATOCRIT 37.7 % (36.0-47.0); HEMOGLOBIN 12.8 g/dL (12.0-15.5); LYMPHOCYTES % (AUTO) 47.5 % (13-45); MEAN CORPUSCULAR HEMOGLOBIN 28.6 pg (27.0-33.4); MEAN CORPUSCULAR HGB CONC 33.8 g/dL (32.0-36.0); MEAN CORPUSCULAR VOLUME 85 fl (80-97); MONOCYTES % (AUTO) 9.3 % (3-13); PLATELET COUNT 244 10^3/uL (150-450); RED BLOOD COUNT 4.46 10^6/uL (3.72-5.28); RED CELL DISTRIBUTION WIDTH 14.3 % (11.5-14.0); SEGMENTED NEUTROPHILS % (AUTO) 40.4 % (42-78); TOTAL CELLS COUNTED % (AUTO) 100 %; WHITE BLOOD COUNT 7.6 10^3/uL (4.0-10.5)
--- NOTE | 2019-06-24 13:22 | RADIOLOGY REPORT (SQ) ---
EXAM DESCRIPTION: CHEST PA/LATERAL IMAGES COMPLETED DATE/TIME: 06/24/2019 12:57 pm REASON FOR STUDY: CHEST PAIN COMPARISON: 04/05/2019 EXAM PARAMETERS: NUMBER OF VIEWS: two views TECHNIQUE: Digital Frontal and Lateral radiographic views of the chest acquired. RADIATION DOSE: NA LIMITATIONS: none FINDINGS: LUNGS AND PLEURA: No opacities, masses or pneumothorax. No pleural effusion. MEDIASTINUM AND HILAR STRUCTURES: No masses or contour abnormalities. HEART AND VASCULAR STRUCTURES: Heart normal size. No evidence for failure. BONES: No acute findings. HARDWARE: None in the chest. OTHER: No other significant finding. IMPRESSION: NO SIGNIFICANT RADIOGRAPHIC FINDING IN THE CHEST. TECHNICAL DOCUMENTATION: JOB ID: [id number] [employer]- All Rights Reserved Reading location - IP/workstation name: [email or web address]
[2019-06-24 13:33] LABS: ALBUMIN 4.2 g/dL (3.5-5.0); ALKALINE PHOSPHATASE 112 U/L (38-126); ANION GAP 9 (5-19); ASPARTATE AMINO TRANSFERASE 26 U/L (14-36); BILIRUBIN,TOTAL 0.5 mg/dL (0.2-1.3); BLOOD UREA NITROGEN 13 mg/dL (7-20); CALCIUM 9.5 mg/dL (8.4-10.2); CARBON DIOXIDE 25 mmol/L (22-30); CHLORIDE 105 mmol/L (98-107); CREATINE KINASE 115 U/L (30-135); GLUCOSE 113 mg/dL (75-110); POTASSIUM 4.2 mmol/L (3.6-5.0); TOTAL PROTEIN 7.8 g/dL (6.3-8.2)
[2019-06-24 13:42] LABS: CREATINE KINASE MB 0.77 ng/mL (<4.55)
[2019-06-24 13:43] LABS: TROPONIN I < 0.012 ng/mL
--- NOTE | 2019-06-24 14:09 | EKG REPORT ---
SEVERITY:- ABNORMAL ECG - SINUS RHYTHM PROBABLE LEFT ATRIAL ABNORMALITY LEFT BUNDLE BRANCH BLOCK : Confirmed by: Breanne Wilson MD 24-Jun-2019 14:09:21
== END ==
LOC: OD 12:27
PROVIDERS: ATTEND Physician Assistant
DX: R07.9 Chest pain, unspecified (principal)
CPT/HCPCS: 36415; 71046; 80053; 82550; 82553; 84484; 85025; 93005; 93010